=== PATIENT | male | born 1950 | race Caucasian/White ===

== ENCOUNTER 2017-08-11 03:10 | Emergency (ER) | payer MEDICARE ==
[~2017-08-11] VITALS: Ht 185.4 cm; Wt 87.6 kg
[~2017-08-11 03:10] MED LIST: ACET325T PO; CARB25TA9 PO; FENO145T2 PO; MULT1TAB84 PO; TAMS0.4C4 PO; THIA100T PO; TRIF1SOL3 EACH EYE
[2017-08-11 03:17] VITALS: BP 96/71; PULSE 86; RESP 14; TEMP 98.5; O2SAT 96
[2017-08-11 03:25] VITALS: BP 129/72; PULSE 82; RESP 18; O2SAT 97
[2017-08-11] MEDS ORDERED: CITA40TA4 PO (03:25)
[2017-08-11] MEDS ORDERED: ROSU1TAB8 PO (03:25)
--- NOTE | 2017-08-11 03:40 | PD ---
HPI Chief Complaint: Injury Time Seen by Provider: 03:33 Travel History International Travel<30 days: No Contact w/Intl Traveler<30days: No Traveled to known affect area: No History of Present Illness HPI 67-year-old male presents to the emergency department by private transportation the care of his spouse for evaluation of laceration to the left hand. Just prior to arrival to the emergency department patient was up out of bed to miner pick his dog and slipped on wooden floor. Patient did hit his head. Patient denies loss of consciousness. No new neck back chest rib abdominal or extremity pain. Patient did sustain a laceration to the palm of his left hand. Patient reportedly had a Dupuytren's contracture affecting the left fourth and fifth digits and after his fall with sustain laceration patient now has normal extension of the fourth and fifth digits that were previously and partial flexion. Patient denies any numbness tingling or weakness of the digits of the left hand there is no obvious bony deformity or soft tissue swelling. Patient rates pain as moderate. Patient's tetanus status is less than 10 years thinks that tetanus status may be 6 years ago the patient fell inside his home and non-tetanus prone environment. 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 Vazquez at [facility] in [place]. Patient has been left with vertical and horizontal diplopia postoperatively. Also h/o UTI's and voices concern of possible UTI. No voiced complaint of fever or chills. PFSH Past Medical History Narrative Medical Dyslipidemia anxiety GERD depression, BPH Dupuytren's contracture; craniotomy Hx Anticoagulant Therapy: Yes (asa 81 mg) Anxiety: Yes Depression: No Cancer: No Cardiovascular Problems: No High Cholesterol: Yes Cerebrovascular Accident: No Diabetes: No Diminished Hearing: No Endocrine: No GERD: Yes Genitourinary: Yes (BPH) Headaches: Yes (current s/p craniotomy) Hepatitis: No Hiatal Hernia: Yes Medical other: Yes ( brain tumor removed) Musculoskeletal: Yes (ARTHRITIS) Neurologic: Yes (panic attacks started in 2015) Psychiatric: No Reproductive: No Respiratory: No Migraines: No Seizures: No Thyroid Disease: No Tetanus Vaccination: > 5 Years Influenza Vaccination: Yes Past Surgical History Abdominal Surgery: Yes (HERNIA REPAIR) AICD: No Appendectomy: Yes Joint Replacement: No Neurologic Surgery: Yes (craniotomy) Oral Surgery: Yes (TONSILS) Pacemaker: No Tonsillectomy: Yes Other Surgery: Yes Social History Alcohol Use: Yes (DAILY) Tobacco Use: No Substance Use: No Allergies-Medications (Allergen,Severity, Reaction): Coded Allergies: No Known Allergies (Verified Adverse Reaction, Unknown, 08/11/17) Reported Meds & Prescriptions Reported Meds & Active Scripts Active Keflex (Cephalexin) 500 Mg Capsule 500 Mg PO Q8H 7 Days Trifluridine Opth Drops (Trifluridine) 1 % Soln 1 Drop EACH EYE DAILY Maximum 9 drops daily Tamsulosin (Tamsulosin HCl) 0.4 Mg Cap 0.4 Mg PO DAILY Fenofibrate 145 Mg Tab 145 Mg PO DAILY Reported Rosuvastatin (Rosuvastatin Calcium) 20 Mg Tab 20 Mg PO DAILY Citalopram (Citalopram Hydrobromide) 40 Mg Tab 40 Mg PO DAILY Review of Systems Except as stated in HPI: all other systems reviewed are Neg Physical Exam Narrative GENERAL: Well-developed well-nourished male in no acute distress no respiratory distress; GCS 15 SKIN: Warm and dry. HEAD: Atraumatic. Normocephalic. Except for small 1.5 cm linear superficial laceration along the superior aspect of the left eyebrow. No scalp soft tissue swelling. EYES: Pupils equal and round. No scleral icterus. No injection or drainage. No periorbital rim step-off or tenderness or crepitus no ecchymosis. ENT: No nasal bleeding or discharge. Mucous membranes pink and moist. NECK: Trachea midline. No JVD. Nontender to direct palpation along the cervical spine no bony step-off. CARDIOVASCULAR: Regular rate and rhythm. RESPIRATORY: No accessory muscle use. Clear to auscultation. Breath sounds equal bilaterally. GASTROINTESTINAL: Abdomen soft, non-tender, nondistended. Hepatic and splenic margins not palpable. MUSCULOSKELETAL: Extremities without clubbing, cyanosis, or edema. No obvious deformities. Attention You aspect of left hand just proximal to the fourth and fifth digits a 2 cm linear laceration with subcutaneous fat noted. Distally digits are neurovascularly tendon intact patient is able to perform flexion as well as extension. Capillary refill brisk and less than 2 seconds. NEUROLOGICAL: Awake and alert. No obvious cranial nerve deficits. Motor grossly within normal limits. Five out of 5 muscle strength in the arms and legs. Normal speech. PSYCHIATRIC: Appropriate mood and affect; insight and judgment normal. Data Data Last Documented VS Vital Signs Date Time Temp Pulse Resp B/P (MAP) Pulse Ox O2 Delivery O2 Flow Rate FiO2 08/11/17 03:25 82 18 129/72 (91) 97 08/11/17 03:17 98.5 Orders Orders Hand, Complete (Sgu1owg) (08/11/17 ) Lidocaine Pf 1% Inj (Xylocaine-Mpf 1% In (08/11/17 03:45) Ct Brain W/O Iv Contrast(Rout) (08/11/17 ) Urinalysis - C+S If Indicated (08/11/17 03:40) Wound Care (08/11/17 05:45) Cephalexin (Keflex) (08/11/17 05:45) Tetanus/Diphtheria Tox Adult (Tetanus/Di (08/11/17 05:45) Labs Laboratory Tests Test 08/11/17 03:46 Urine Color YELLOW Urine Turbidity CLEAR Urine pH 6.0 Urine Specific [place] 1.011 Urine Protein NEG mg/dL Urine Glucose (UA) NEG mg/dL Urine Ketones NEG mg/dL Urine Occult Blood NEG Urine Nitrite NEG Urine Bilirubin NEG Urine Leukocyte Esterase NEG Urine RBC 0-3 /hpf Urine WBC 3-5 /hpf Urine Squamous Epithelial Cells 0-5 /hpf Urine Mucus OCC /lpf Microscopic Urinalysis Comment CULT NOT INDICATED MDM Medical Decision Making Medical Screen Exam Complete: Yes Emergency Medical Condition: Yes Medical Record Reviewed: Yes Interpretation(s) UA: wnl Last Impressions Head CT 08/11/17 0000 Signed Impressions: Service Date/Time: Friday, August 11, 2017 04:07 - CONCLUSION: 1. No acute intracranial abnormalities. Stable occipital craniotomy changes. Ifeanyi Mejia MD Hand X-Ray 08/11/17 0000 Signed Impressions: Service Date/Time: Friday, August 11, 2017 03:51 - CONCLUSION: 1. Small linear metallic appearing foreign body in the soft tissues of the left thenar eminence. Ifeanyi Mejia MD Vital Signs Date Time Temp Pulse Resp B/P (MAP) Pulse Ox O2 Delivery O2 Flow Rate FiO2 08/11/17 03:25 82 18 129/72 (91) 97 08/11/17 03:17 98.5 86 14 96/71 (79) 96 Differential Diagnosis Laceration, tendon interruption/laceration, fracture, minor closed head injury, ICH, UTI Narrative Course CT brain noncontrast ordered along with urinalysis and left hand x-ray; plan will be to repair laceration and referred patient to hand surgeon unless evidence of an open fracture. Diagnosis Primary Impression: Laceration of left hand Qualified Codes: S61.412A - Laceration without foreign body of left hand, initial encounter Additional Impressions: Minor closed head injury Abrasion of left eyebrow Referrals: Ventura Dempsey III, MD 1 day Phone office in a.m. to schedule follow-up appointment Patient Instructions: General Instructions Additional Instructions: Keep wound site clean and dry Follow-up with hand surgeon call office in a.m. to schedule follow-up appointment with your hand surgeon Dr. Dempsey Return to the emergency department for any concerns redness swelling pain drainage fever or change in condition Take acetaminophen/Tylenol every 4 hours as needed for fever 100.4F or greater or for minor pain Take ibuprofen/Advil/Motrin may take 6 mg as often as every 6 hours for pain associated with inflammation or for fever 100.4F or greater Wound check at 2 days suture removal at 7-10 days Follow head injury precautions 24 hours Med/Other Pt SpecificInfo: Prescription(s) given Scripts Cephalexin (Keflex) 500 Mg Capsule 500 MG PO Q8H for Infection for 7 Days, #21 CAP 0 Refills Prov: Clarissa Ignacio MD 08/11/17 Disposition: 01 DISCHARGE HOME Condition: Stable Clarissa Ignacio MD Aug 11, 2017 03:39
[2017-08-11] MEDS ORDERED: LIDOCAINE HCL 1% PF 10 ML VIAL INFIL ONE (03:45)
[2017-08-11 04:02] LABS: BILIRUBIN, URINE NEG (NEG); BLOOD, URINE NEG (NEG); GLUCOSE,URINE NEG (NEG); KETONE, URINE NEG (NEG); NITRITE,URINE NEG (NEG); URINE LEUKOCYTE ESTERASE NEG (NEG)
[2017-08-11 04:10] LABS: URINE COLOR YELLOW (YELLW/STRAW)
[2017-08-11 04:11] LABS: MUCUS URINE OCC /lpf (OCC); SQUAMOUS EPITHELIAL CELL URINE 0-5 /hpf (0-5)
[2017-08-11 04:12] LABS: RBC, URINE 0-3 /hpf (0-3)
--- NOTE | 2017-08-11 04:25 | RADRPT ---
EXAM DATE/TIME: 08/11/2017 03:51 [facility] COMPARISON: No previous studies available for comparison. INDICATIONS : Left hand pain and laceration after fall. MEDICAL HISTORY : None. SURGICAL HISTORY : Tumors removed on left hand. ENCOUNTER: Initial ACUITY: 1 day PAIN SCORE: 9/10 LOCATION: Left anterior hand. FINDINGS: There is a small linear metallic appearing foreign body in the thenar eminence. No acute bony abnorma lities. No dislocation. CONCLUSION: 1. Small linear metallic appearing foreign body in the soft tissues of the left thenar eminence. Ifeanyi Mejia MD on August 11, 2017 at 4:21 Board Certified Radiologist. This report was verified electronically.
--- NOTE | 2017-08-11 04:32 | RADRPT ---
EXAM DATE/TIME: 08/11/2017 04:07 [facility] COMPARISON: CT BRAIN W/O CONTRAST, October 14, 2016, 16:33. INDICATIONS : Trauma. Fall. RADIATION DOSE: 60.94 CTDIvol (mGy) MEDICAL HISTORY : Hypertension. SURGICAL HISTORY : Craniotomy. ENCOUNTER: Initial ACUITY: 1 day PAIN SCALE: 0/10 LOCATION: Left frontal TECHNIQUE: Multiple contiguous axial images were obtained of the head. Using automated exposure control and adj ustment of the mA and/or kV according to patient size, radiation dose was kept as low as reasonably a chievable to obtain optimal diagnostic quality images. DICOM format image data is available electro nically for review and comparison. FINDINGS: Compare October 2016. Previous frontal subdural hygromas have decreased in size. No new intracranial he morrhage, mass effect shift. No hydrocephalus. Stable occipital bone craniotomy noted. No acute findi ngs in the paranasal sinuses. CONCLUSION: 1. No acute intracranial abnormalities. Stable occipital craniotomy changes. Ifeanyi Mejia MD on August 11, 2017 at 4:27 Board Certified Radiologist. This report was verified electronically.
[2017-08-11] MEDS ORDERED: CEPH-460 PO (05:45)
[2017-08-11] MEDS ORDERED: TETANUS/DIPHTHERIA TOXOID ADULT 0.5 ML VIAL IM ONE (05:45)
[2017-08-11] MEDS ORDERED: CEPHALEXIN MONOHYDRATE 500 MG CAP PO ONE (05:45)
== END 2017-08-11 06:06 | disposition home or self-care (01) ==
LOC: PHED 03:10
DX: S61.412A Laceration without foreign body of left hand, initial encounter (principal); S00.212A Abrasion of left eyelid and periocular area, initial encounter; E78.00 Pure hypercholesterolemia, unspecified; W01.0XXA Fall on same level from slipping, tripping and stumbling without subsequent striking against object, initial encounter; Z23 Encounter for immunization
CPT/HCPCS: 12001; 70450; 73130; 81001; 90471; 90714

== ENCOUNTER → 2017-09-02 | Day surgery (SDC) | payer MEDICARE ==
[~2017-09-02] VITALS: Ht 185.4 cm; Wt 81.8 kg
[~2017-09-02] MED LIST changes: -ACET325T PO; +ACETAMINOPHEN 1000 MG/100 ML 100 ML IV ONE; +BUPIVACAINE HCL PF 0.5% 30 ML VIAL ONE; -CARB25TA9 PO; +CELE40TA PO; +CEPH-459 PO; +CEPH-460 PO; +CHLORHEXIDINE GLUCONATE 2 % 1 PACK (2 CLOTHS) TOPICAL PRN; +CITA40TA4 PO; +DAILTAB PO; +EPINEPHrine HCL PF/SF (1:1000) 1 MG/ML AMP I-OCULAR ONE; +HYDR-3288 PO; +LACTATED RINGER'S 1000 ML IV PRN; +LIDOCAINE 1%/EPINEPHrine 1:100,000 SOLN 30 ML VIAL ONE; +LIDOCAINE HCL 2% 50 ML VIAL ONE; +METOPROLOL TARTRATE 25 MG TAB PO PRN; +MIDAZOLAM HCL 2 MG/2 ML VIAL ONE; -MULT1TAB84 PO; +NEOMYCIN/POLYMYXIN 1 ML G.U. IRRIGANT ONE; +POVIDONE IODINE 5% (ANTISEPSIS KIT) 4 APPLICATIONS EACH NARE PRN; +ROSU1TAB8 PO; +SODIUM CHLORID 0.9% 500 ML IV PRN; -THIA100T PO; +THROMBIN (TOPICAL) 5,000 UNIT VIAL ONE; +TRAV0.00 EACH EYE; +TRIAMCINOLONE ACETONIDE 40 MG/ML VIAL ONE; +VITA100T54 PO; +ceFAZolin 1,000 MG/NS 100 ML IV SCH
[2017-09-02 08:50] LABS: HEMATOCRIT 37.1 % (39.0-51.0); HEMOGLOBIN 12.1 GM/DL (13.0-17.0); MEAN CORPUSCULAR HEMOGLOBIN 30.2 PG (27.0-34.0); MEAN CORPUSCULAR HGB CONC 32.5 % (32.0-36.0); MEAN PLATELET VOLUME 7.7 FL (7.0-11.0); PLATELET COUNT 180 TH/MM3 (150-450); RED BLOOD COUNT 3.99 MIL/MM3 (4.50-5.90); RED CELL DISTRIBUTION WIDTH 12.6 % (11.6-17.2); WHITE BLOOD COUNT 4.6 TH/MM3 (4.0-11.0)
[2017-09-02 11:55] VITALS: PULSE 97
[2017-09-02 13:15] VITALS: BP 116/71; PULSE 96; RESP 16; TEMP 98.6; O2SAT 96
--- NOTE | 2017-09-03 14:41 | EKG ---
Date Performed: 09/02/2017 Time Performed: 08:45:35 PTAGE: 67 years EKG: Sinus rhythm NORMAL ECG PREVIOUS TRACING : 07/11/2016 16.47 Since the prior tracing, there has been no significant junior DOCTOR: Dari Sylvester Interpretating Date/Time 09/03/2017 14:37:16
--- NOTE | 2017-09-04 21:21 | MP ---
cc: VENTURA DEMPSEY III, M.D. DATE OF SURGERY: 09/02/2017. PREOPERATIVE DIAGNOSIS: 1. Left hand Dupuytren's contractures. 2. Left fourth and fifth finger masses. 3. Left carpal tunnel syndrome. POSTOPERATIVE DIAGNOSIS: 1. Left hand Dupuytren's contractures. 2. Left fourth and fifth finger masses. 3. Left carpal tunnel syndrome. OPERATIVE PROCEDURE PERFORMED: 1. Left thumb vera fasciectomy with full-thickness skin graft and advancement flap closures greater than 10 cm2. 2. Left fourth finger mass excisional biopsy. 3. Left fifth finger mass excisional biopsy. 4. Left carpal tunnel steroid injection. SURGEON: Ventura Dempsey III, MD. DESCRIPTION OF THE PROCEDURE IN DETAIL: The patient was brought to the operating room and placed supine on the operating table. After the correct site and side of surgery were verified by members of each team in the room multiple times including the patient and myself and after adequate preoperative markings and preoperative written consent were verified by everyone and after adequate preoperative time-out was performed to everyone's satisfaction and after adequate general anesthesia had been achieved, the left upper extremity was prepped and draped in the traditional sterile surgical fashion. A 50/50 mixture of 2% plain lidocaine and 0.5% plain Marcaine was infiltrated into the skin and subcutaneous tissue in the area of all the planned incisions. The limb was exsanguinated with a gentle MG wrap and a highly placed well-padded axillary tourniquet was inflated 200 mmHg for a total of 59 minutes. Multiple incisions were needed to dissect out all of the contracted palmar fascia leading up to the thumb and the IP joint of the thumb as well as the large thick cord in the first webspace. The neurovascular bundles were identified and protected the entire time. The cords and the contracted palmar fascia was all resected. The skin flaps were freed as well. Once the thumb was extended a 4 x 2 cm defect was remaining. A full-thickness skin graft was harvested in the usual fashion from the proximal inner left arm and this donor site was closed using buried 4-0 Vicryl sutures and the skin edges were reapproximated using subcuticular 4-0 Monocryl suture. Mastisol and Steri-Strips were applied followed by a gentle occlusive dressing. The skin graft was tailored to size, length and fit and secured in place with multiple interrupted 4-0 chromic sutures. A small wound in the skin was left open and a one-quarter inch Webster drain was split in half longitudinally and divided in half longitudinally and was placed deep and brought out as a drain. The masses on the dorsal aspects of the fourth and fifth proximal interphalangeal joints were then excised with a transverse incision within the skin creases over the PIP joint. The masses appeared to be made of fibrous tissue. These were resected in their entirety. The extensor mechanism was not compromised in any way. Thorough irrigation was performed. The redundant skin was resected and the skin edges were reapproximated after thorough irrigation with saline with 4-0 nylon sutures. The left carpal tunnel was then sterilely injected on the field using a 2:1 mixture of the numbing medicine and 1 mL of Kenalog, 40 mg/mL for a total of 3 cc injected. The hand and arm were thoroughly cleansed and dried. Of note, the axillary tourniquet was released prior to the closure of the palm and the thumb defect and placement of the skin graft. Hemostasis was present. The fingers and the thumb all were soft, pink and warm and had brisk capillary refill of less than 2 seconds and there was no bleeding or hematoma formation. The hand and arm were thoroughly cleansed and dried. Betadine and Adaptic dressings were applied atop the wounds. Band-Aids were applied over the fourth and fifth PIP joints and then a well-padded, well molded bolster dressing with a short-arm thumb spica splint was made keeping the thumb completely extended at 90 degrees in the first webspace. The patient was awakened from anesthesia and transported to the post-anesthesia care unit awake and in stable condition at the end of the case. The sponge, needle and instrument counts were correct at the end of the case as reported by nurses in the room. MD FIFI Day III/ISMAEL /12:15 PM /9:07 PM
== END | disposition home or self-care (01) ==
LOC: PHSDC 07:50
PROVIDERS: ATTEND Orthopaedic Surgery Hand Surgery
DX: M72.0 Palmar fascial fibromatosis [Dupuytren] (principal); R22.32 Localized swelling, mass and lump, left upper limb; G56.02 Carpal tunnel syndrome, left upper limb; Z01.810 Encounter for preprocedural cardiovascular examination
CPT/HCPCS: 01810; 20526; 26123; 26160; 36415; 85027; 88304; 88305; 93005; J0131; J0690; J2250; J3010; J3301; L3808; J0171